=== PATIENT | female | born 2000 | race African-American/Black ===

== ENCOUNTER → 2020-03-12 | Outpatient (CLI) | payer BC ==
--- NOTE | 2020-03-12 16:57 | RAD ---
US PELVIS W/TV: 03/12/2020 3:00 PM INDICATION: 19 years old Female. IUD PLACEMENT, MENORRHAGIA COMPARISON: None. TECHNIQUE: Transabdominal and transvaginal sonographic evaluation of the pelvis was performed. Grayscale, color Doppler and spectral waveform analysis were utilized. FINDINGS: UTERUS: Size: 6.7 x 4.9 x 3.9 cm. Masses: None. Endometrium: 3 mm. No suspicious vascularity is identified. IUD is in appropriate position. RIGHT OVARY: 3.3 x 1.5 x 2.0 cm. Follicular changes are present. LEFT OVARY: 3.8 x 3.7 x 2.2 cm. There is a 1.9 x 1.8 x 1.6 cm cystic lesion within the left ovary with internal echoes which may be associated with endometrioma or hemorrhagic cyst. Arterial and venous waveform are identified within the ovaries bilaterally at the time of imaging. FREE FLUID: There is a trace amount of free fluid within the pelvis, physiologic in amount. URINARY BLADDER: Unremarkable. IMPRESSION: 1. There is a 1.9 x 1.8 x 1.6 cm isoechoic to hyperechoic cyst which could reflect endometrioma or hemorrhagic cyst. Recommend 2-3 month follow-up pelvic ultrasound. 2. IUD is in satisfactory position. Electronically signed by: Jodi Srinivasan MD (03/12/2020 4:54 PM) SANDI
== END | disposition home or self-care (01) ==
LOC: US 15:16
PROVIDERS: ATTEND Nurse Practitioner Women's Health
DX: N92.0 Excessive and frequent menstruation with regular cycle (principal); N83.292 Other ovarian cyst, left side
CPT/HCPCS: 76830; 76856